=== PATIENT | male | born 1995 | race Caucasian/White ===

== ENCOUNTER 2021-03-27 18:00 | Emergency (ER) | payer OTHER ==
[2021-03-27 20:14] LABS: HEMOGLOBIN 16.5 gm/dl (14.0-17.5); RED BLOOD COUNT 5.47 M/UL (4.20-5.50); WHITE BLOOD COUNT 8.5 K/UL (4.5-11.0)
[2021-03-27] MEDS ORDERED: IBUPROFEN800 MG PO (20:34)
[2021-03-27 20:54] LABS: BUN/CREATININE RATIO 12 (0-10)
== END 2021-03-27 20:55 | disposition home or self-care (01) ==
LOC: ER1 18:00
PROVIDERS: Preventive Medicine Occupational Medicine
DX: K63.89 Other specified diseases of intestine (principal)
CPT/HCPCS: 80048; 81001; 85025; 86140; 96374; 99284; J1885

== ENCOUNTER → 2021-09-23 | Outpatient (CLI) | payer BC, OTHER ==
[~2021-09-23] MED LIST: IBUPROFEN800 MG PO
== END ==
LOC: LAB 10:11
DX: R19.7 Diarrhea, unspecified (principal)
CPT/HCPCS: 83993

== ENCOUNTER → 2021-11-11 | Day surgery (SDC) | payer BC, OTHER | END | disposition home or self-care (01) | LOC: OR 12:30 | DX: Z53.9 Procedure and treatment not carried out, unspecified reason (principal) ==

== ENCOUNTER → 2021-11-12 | Day surgery (SDC) | payer OTHER ==
[2021-11-13 15:11] LABS: ENDOMYSIAL ANTIBODY IGA Negative (Negative); IMMUNOGLOBULIN A, QN, SERUM 199 mg/dL (90-386); T-TRANSGLUTAMINASE (TTG) IGA <2 U/mL (0-3)
== END | disposition home or self-care (01) ==
LOC: OR 07:33
PROVIDERS: Internal Medicine Gastroenterology
DX: K58.0 Irritable bowel syndrome with diarrhea (principal); K64.1 Second degree hemorrhoids; K21.9 Gastro-esophageal reflux disease without esophagitis; E66.9 Obesity, unspecified; F17.210 Nicotine dependence, cigarettes, uncomplicated; Z68.30 Body mass index [BMI] 30.0-30.9, adult
CPT/HCPCS: 82784; J2704; J7040